=== PATIENT | female | born 1980 | race Two or more races ===

== ENCOUNTER 2024-12-05 10:48 | Emergency (ER) | payer OTHER ==
[~2024-12-05] VITALS: Ht 152.4 cm; Wt 62.0 kg
[2024-12-05 11:15] VITALS: O2SAT 100
[2024-12-05] MEDS: ACETAMINOPHEN 500MG TABLET PO ONE (11:51)
[2024-12-05] MEDS: KETOROLAC 30MG/ML VIAL IV ONE (11:52)
[2024-12-05] MEDS: METOCLOPRAMIDE HCL 10MG/2ML VIAL IV ONE (11:52)
[2024-12-05] MEDS: SODIUM CHLORIDE 0.9% 1,000 ML IV ONE (11:53)
[2024-12-05] MEDS: PROMETHAZINE HCL 25MG TABLET PO STA (13:30)
[2024-12-05] MEDS: SUMATRIPTAN SUCCINATE 6MG/0.5ML VIAL SUBCUT ONE (13:30)
[2024-12-05 13:49] VITALS: BP 150/104; PULSE 69; RESP 20; TEMP 36.4; O2SAT 100
== END 2024-12-05 13:50 | disposition home or self-care (01) ==
LOC: ER 10:48
DX: G43.909 Migraine, unspecified, not intractable, without status migrainosus (principal); I10 Essential (primary) hypertension; Z88.6 Allergy status to analgesic agent
CPT/HCPCS: 81025; 96361; 96372; 96374; 96375; 99284; Q0169; J1885; J2765; J3030; J7030; Z7610 ×2

== ENCOUNTER 2024-12-13 01:20 | Emergency (ER) | payer MEDICAID ==
[~2024-12-13] VITALS: Ht 152.4 cm; Wt 61.0 kg
[2024-12-13 01:26] VITALS: TEMP 36.8; O2SAT 98
[2024-12-13 01:30] VITALS: RESP 16
[2024-12-13] MEDS: CYCLOBENZAPRINE 10MG TABLET PO ONE (03:12)
[2024-12-13 05:24] LABS: CLARITY URINE CLEAR (CLEAR); COLOR URINE YELLOW (YELLOW); GLUCOSE URINE NEGATIVE (NEGATIVE); KETONES URINE TRACE (NEGATIVE); NITRITE URINE NEGATIVE (NEGATIVE); OCCULT BLOOD URINE NEGATIVE (NEGATIVE); PH URINE 6.5 (4.5-8.0); PROTEIN URINE NEGATIVE (NEGATIVE); SPECIFIC GRAVITY URINE 1.019 (1.005-1.030)
[2024-12-13 05:25] LABS: LEUKOCYTE ESTERASE URINE NEGATIVE (NEGATIVE)
[2024-12-13] MEDS: LIDOCAINE HCL/PF 1% 10 MG/ML 5ML VIAL INFIL ONE (05:45)
[2024-12-13] MEDS: DOXYCYCLINE HYCLATE 100MG CAPSULE PO ONE (05:46)
[2024-12-13] MEDS: CEFTRIAXONE SODIUM 500MG VIAL IM ONE (05:46)
[2024-12-13] MEDS ORDERED: DOXY-461 MT (05:57)
[2024-12-13 06:39] VITALS: BP 131/91; PULSE 69; O2SAT 100
== END 2024-12-13 06:41 | disposition home or self-care (01) ==
LOC: ER 01:20
DX: I88.9 Nonspecific lymphadenitis, unspecified (principal); D25.9 Leiomyoma of uterus, unspecified; E03.9 Hypothyroidism, unspecified; Z88.6 Allergy status to analgesic agent
CPT/HCPCS: 81003; 81025; 87210; 76830; 76856; 76857; 96372; 99285; J0696; J2003; Z7610

== ENCOUNTER 2025-02-18 10:13 | Emergency (ER) | payer MEDICAID ==
[~2025-02-18] VITALS: Ht 144.8 cm; Wt 59.0 kg
[~2025-02-18 10:13] MED LIST: LIDO1ADH71 TD; OXYC-100 MT; TRAM50TA3 MT
[2025-02-18 10:27] VITALS: TEMP 36.9; O2SAT 99
[2025-02-18] MEDS ORDERED: BACLOFEN 20MG TABLET PO ONE (11:15)
[2025-02-18] MEDS: LIDOCAINE 5% PATCH TOP STA (11:28)
[2025-02-18] MEDS: KETOROLAC 30MG/ML VIAL IM ONE (11:29)
[2025-02-18] MEDS: BACLOFEN 10MG TABLET PO NR (11:37)
[2025-02-18] MEDS: BACITRACIN ZINC OINT UDPKT TOP ONE (12:15)
[2025-02-18] MEDS ORDERED: CEPH500T MT (12:52)
[2025-02-18] MEDS ORDERED: TRAM50TA3 MT (12:52)
[2025-02-18] MEDS ORDERED: BACL20TA MT (12:52)
[2025-02-18] MEDS ORDERED: SULF1TAB48 MT (12:52)
[2025-02-18] MEDS ORDERED: LIDO700A30 TP (12:52)
[2025-02-18] MEDS ORDERED: BO1 TP (12:52)
[2025-02-18] MEDS: TRAMADOL 50MG TABLET PO ONE (13:10)
[2025-02-18 13:28] VITALS: BP 116/82; PULSE 79; RESP 18; O2SAT 100
== END 2025-02-18 13:15 | disposition home or self-care (01) ==
LOC: ER 10:14
DX: N61.1 Abscess of the breast and nipple (principal); M54.42 Lumbago with sciatica, left side; E03.9 Hypothyroidism, unspecified; Z88.6 Allergy status to analgesic agent; Z79.899 Other long term (current) drug therapy
CPT/HCPCS: 81025; 10160; 96372; 99284; J1885; Z7610 ×2; 10060